=== PATIENT | male | born 1960 | race Caucasian/White ===

== ENCOUNTER 2021-07-26 19:09 | Emergency (ER) | payer SELFPAY ==
[~2021-07-26] VITALS: Ht 195.6 cm; Wt 97.7 kg
[~2021-07-26 19:09] MED LIST: HYOS0.1278 SL; OXYB5TAB10 PO; OXYC1TAB7 PO; SCOP1PAT12 TP; SENN-161 PO; SULF1TAB23 PO
--- NOTE | 2021-07-26 19:25 | PHYS DOC ---
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 " Patient is a 61 year old male who presents with above hx of heavy alcohol use. Pt. still celebrating his birthday. Patient reports she is from alcohol mine [facility]. Has been here a couple of days visiting a friend from the . Patient states he does drink alcohol every day. Preferably whiskey but no preference. Patient does not smoke. Patient reports no trauma. Patient initially identified himself as only as Shawn Sky however was later identified as Shawn Augustine. Mr. Augustine is also know ast Shawn Patriciaony. Patient has past medical history of urinary tract infections prostate cancer status post prostatectomy, alcohol abuse,. Review of Systems: Review of Systems: Constitutional: Denies fever or chills Eyes: Denies change in visual acuity HENT: Denies nasal congestion or sore throat Respiratory: Denies cough or shortness of breath Cardiovascular: Denies chest pain or edema GI: Denies abdominal pain, nausea, vomiting, bloody stools or diarrhea : Denies dysuria Musculoskeletal: Denies back pain or joint pain Integument: Denies rash Neurologic: Denies headache, focal weakness or sensory changes Endocrine: Denies polyuria or polydipsia Lymphatic: Denies swollen glands Psychiatric: Denies depression or anxiety Family History: Family History: Noncontributory to presentation Current Medications: Current Meds: See nursing for home meds Allergies: Allergies: No known allergies Physical Exam: PE: Constitutional: , no acute distress, non-toxic appearance. [] HENT: Normocephalic, atraumatic, bilateral external ears normal, oropharynx moist, no oral exudates, nose normal. [] Eyes: PERRLA, EOMI, conjunctiva normal, no discharge. [] Neck: Normal range of motion, no tenderness, supple, no stridor. [] Cardiovascular:Heart rate regular rhythm, no murmur [] Lungs & Thorax: Bilateral breath sounds equal apex on auscultation [] Abdomen: Bowel sounds normal, soft, no tenderness, no masses, no pulsatile masses. Old surgery scar Skin: Warm, dry, no erythema, no rash. [] Back: No tenderness, no CVA tenderness. [] Extremities: No tenderness, no cyanosis, no clubbing, ROM intact, no edema. Scratch on left leg Neurologic: Alert and oriented X 3, moves all extremities on request, does have distal sensory,,. Slurred speech. Slightly discoordinated. Ataxia. Psychologic: Affect normal, judgement impaired, mood normal. [] EKG: EKG: My interpretation EKG shows a sinus rhythm at 75 bpm. No acute morphology. Does have some nonspecific T waves. No findings acute STEMI or contralateral changes. Time of EKG is 1946 hrs. [] Radiology/Procedures: Radiology/Procedures: : 1960LOCATION: ERAGE: 61 SEX: M EXAM STATUS: PRE ER ORD. PHYSICIAN: ROSIE VIVAS MD REASON: AMS PROCEDURE: CT HEAD WO CONTRAST EXAMINATION: CT HEAD/BRAIN WO CLINICAL HISTORY: Altered mental status. TECHNIQUE: Serial axial images without IV contrast were obtained from the vertex to the foramen magnum. CT Dose Reduction Employed: One or more of the following individualized dose reduction techniques were utilized for this examination: 1. Automated exposure control 2. Adjustment of the mA and/or kV according to patient size 3. Use of iterative reconstruction technique. COMPARISON: None FINDINGS: Acute Change: No evidence of an acute infarct or other acute parenchymal process. Hemorrhage: No evidence of acute intracranial hemorrhage. Mass Lesion/Mass Effect: No evidence of intracranial mass or extraaxial fluid collection. No significant mass effect. Chronic Change: Encephalomalacia in the left frontoparietal and anterior inferior left frontal lobes, compatible with remote infarcts. Somewhat more masslike area of slightly heterogeneous hypoattenuation in the inferolateral right frontal lobe, possibly also related to a remote infarct but incompletely evaluated. Parenchyma: Mild generalized volume loss. Ventricles: Ventricular enlargement concordant with degree of parenchymal volume loss. Paranasal Sinuses and Skull Base: Visualized paranasal sinuses clear. Visualized skull base and soft tissues unremarkable. IMPRESSION: No definitive evidence of acute intracranial abnormality. 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 Somewhat more masslike area of nonspecific hypoattenuation in the right frontal lobe, possibly also related to remote infarct but incompletely evaluated. Consider MRI for further evaluation. Electronically signed by: Manuelito Poe DO (07/26/2021 8:39 PM) [facility] DICTATED AND SIGNED BY: MANUELITO POE DO DATE: 07/26/212033 CC: ROSIE VIVAS MD ~ [][address] [address] IMAGING REPORT Signed PATIENT: SHAWN AUGUSTINE AACCOUNT: [id number] : 1960 LOCATION: ER AGE: 61 SEX: M EXAM STATUS: REG ER ORD. PHYSICIAN: ROSIE VIVAS MD REASON: mental status change, cough PROCEDURE: PORTABLE CHEST 1V EXAMINATION: XR CHEST 1V CLINICAL HISTORY: Mental status change, cough. EXAM DATE/TIME: 07/26/2021 7:29 PM COMPARISON: None FINDINGS: Lines, Tubes, and Devices: None. Cardiomediastinal Silhouette: Normal heart size. Lungs and Pleura: No evidence of focal airspace consolidation, pleural effusion, or pneumothorax. Probable mild bibasilar subsegmental atelectasis and/or scarring. Bones and Soft Tissues: No acute osseous abnormality. IMPRESSION: No evidence of acute cardiopulmonary abnormality. Electronically signed by: Manuelito Poe DO (07/26/2021 9:00 PM) [facility] DI[facility]ATED AND SIGNED BY: MANUELITO POE DO DATE: 07/26/212058 CC: ROSIE VIVAS MD; PCP,NO ~ Heart Score: C/O Chest Pain: N/A Risk Factors: Risk Factors: DM, Current or recent (<one month) smoker, HTN, HLP, family history of CAD, obesity. Risk Scores: Score 0 - 3: 2.5% MACE over next 6 weeks - Discharge Home Score 4 - 6: 20.3% MACE over next 6 weeks - Admit for Clinical Observation Score 7 - 10: 72.7% MACE over next 6 weeks - Early Invasive Strategies Course & Med Decision Making: Course & Med Decision Making Pertinent Labs and Imaging studies reviewed. (See chart for details) Patient transferred to [facility] - for planned MRI of head to eval. for CVA and Frontal mass. Will not anticoagulate at this time for the elevated D-dimer may be related to frontal infarct vs mass- until better eval . by MRI. The alcohol level of 26 is not enough for his altered mental status.. Patient may also be postictal. Impression: 1. Mental status change 2. Hx. of earlier Alcohol intoxication ( currently ETOH only 26) 3. Drug screen positive for cocaine, methamphetamine, marijuana and alcohol 4. Elevated CK3 68 5. Renal insufficiency BUN 27 creatinine 1.5 6. Elevated D-dimer 2.79 7. Mild anemia hemoglobin 12.2 [] Dragon Disclaimer: Dragon Disclaimer: This electronic medical record was generated, in whole or in part, using a voice recognition dictation system. Dragon Disclaimer This chart was dictated in whole or in part using Voice Recognition software in a busy, high-work load, and often noisy Emergency Department environment. It may contain unintended and wholly unrecognized errors or omissions. ROSIE VIVAS MD July 26, 2021 19:25
[2021-07-26] MEDS ORDERED: IV RINGERS SOLUTION,LACTATED 1,000 ML IV SCH (19:30)
[2021-07-26 19:59] LABS: BASO % 1 % (0-3); EOS # 0.2 x10^3/uL (0.0-0.7); EOS % 3 % (0-3); HEMOGLOBIN 12.2 g/dL (13.0-17.5); LYMPH # 1.8 x10^3/uL (1.0-4.8); LYMPH % 29 % (24-48); MEAN CORPUSCULAR HEMOGLOBIN 32 pg (25-35); MEAN CORPUSCULAR HGB CONC 35 g/dL (31-37); MEAN CORPUSCULAR VOLUME 92 fL (79-100); MONO # 0.5 x10^3/uL (0.0-1.1); MONO % 8 % (0-9); NEUT # 3.7 x10^3uL (1.8-7.7); NEUT % 60 % (31-73); PLATELET COUNT 151 x10^3/uL (140-400); RED BLOOD COUNT 3.79 x10^6/uL (4.30-5.70); RED CELL DISTRIBUTION WIDTH 13.3 % (11.5-14.5); WHITE BLOOD COUNT 6.2 x10^3/uL (4.0-11.0)
[2021-07-26 20:05] LABS: BARBITURATES NEG (NEG); BENZODIAZEPINES NEG (NEG); CANNABINOIDS POS (NEG); COCAINE POS (NEG); METHADONE NEG (NEG); OPIATES NEG (NEG); PHENCYCLIDINE NEG (NEG)
[2021-07-26 20:06] LABS: CALCIUM 8.8 mg/dL (8.5-10.1); CREATININE 1.5 mg/dL (0.7-1.3); GFR 47.3
[2021-07-26 20:07] LABS: BACTERIA,URINE 0 /HPF (0-FEW); CLARITY,URINE CLEAR; COLOR,URINE YELLOW; GLUCOSE,URINE NEG (NEG); NITRITE,URINE NEG (NEG); RBC,URINE 0 /HPF (0-2); SQUAMOUS EPITHELIAL CELL,UR OCC /LPF; UROBILINOGEN,URINE 0.2 mg/dL (0.2 mg/dL); WBC,URINE 0 /HPF (0-4)
[2021-07-26 20:08] LABS: AMORPHOUS SEDIMENT,UR PRESENT /HPF
[2021-07-26 20:09] LABS: AMPHETAMINE/METHAMPHETAMINE POS (NEG)
[2021-07-26 20:19] LABS: ALBUMIN 3.6 g/dL (3.4-5.0); DIRECT BILIRUBIN 0.1 mg/dL (0.0-0.2); MAGNESIUM 1.8 mg/dL (1.8-2.4); TOTAL BILIRUBIN 0.4 mg/dL (0.2-1.0); TOTAL PROTEIN 6.7 g/dL (6.4-8.2)
[2021-07-26 20:37] LABS: INFLUENZA A PATIENT NEGATIVE (NEGATIVE); INFLUENZA B PATIENT NEGATIVE (NEGATIVE)
--- NOTE | 2021-07-26 20:41 | RAD ---
EXAMINATION: CT HEAD/BRAIN WO CLINICAL HISTORY: Altered mental status. TECHNIQUE: Serial axial images without IV contrast were obtained from the vertex to the foramen magnu m. CT Dose Reduction Employed: One or more of the following individualized dose reduction techniques rubio e utilized for this examination: 1. Automated exposure control 2. Adjustment of the mA and/or kV ac cording to patient size 3. Use of iterative reconstruction technique. COMPARISON: None FINDINGS: Acute Change: No evidence of an acute infarct or other acute parenchymal process. Hemorrhage: No evidence of acute intracranial hemorrhage. Mass Lesion/Mass Effect: No evidence of intracranial mass or extraaxial fluid collection. No signific ant mass effect. Chronic Change: Encephalomalacia in the left frontoparietal and anterior inferior left frontal lobes, compatible with remote infarcts. Somewhat more masslike area of slightly heterogeneous hypoattenuati on in the inferolateral right frontal lobe, possibly also related to a remote infarct but incompletel y evaluated. Parenchyma: Mild generalized volume loss. Ventricles: Ventricular enlargement concordant with degree of parenchymal volume loss. Paranasal Sinuses and Skull Base: Visualized paranasal sinuses clear. Visualized skull base and soft tissues unremarkable. IMPRESSION: No definitive evidence of acute intracranial abnormality. 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 Somewhat more masslike area of nonspecific hypoattenuation in the right frontal lobe, possibly also r elated to remote infarct but incompletely evaluated. Consider MRI for further evaluation. Electronically signed by: Manuelito Rahman DO (07/26/2021 8:39 PM) [facility]
--- NOTE | 2021-07-26 21:02 | RAD ---
EXAMINATION: XR CHEST 1V CLINICAL HISTORY: Mental status change, cough. EXAM DATE/TIME: 07/26/2021 7:29 PM COMPARISON: None FINDINGS: Lines, Tubes, and Devices: None. Cardiomediastinal Silhouette: Normal heart size. Lungs and Pleura: No evidence of focal airspace consolidation, pleural effusion, or pneumothorax. Pro bable mild bibasilar subsegmental atelectasis and/or scarring. Bones and Soft Tissues: No acute osseous abnormality. IMPRESSION: No evidence of acute cardiopulmonary abnormality. Electronically signed by: Manuelito Rahman DO (07/26/2021 9:00 PM) [facility]
[2021-07-26 23:05] VITALS: BP 132/71
== END 2021-07-26 23:32 | disposition short-term general hospital (02) ==
LOC: ER 19:09 → MERGE 19:09 → ER 23:32
DX: R41.82 Altered mental status, unspecified (principal); R79.89 Other specified abnormal findings of blood chemistry; N28.9 Disorder of kidney and ureter, unspecified; R79.1 Abnormal coagulation profile; D64.9 Anemia, unspecified; F10.10 Alcohol abuse, uncomplicated; F15.90 Other stimulant use, unspecified, uncomplicated; F14.90 Cocaine use, unspecified, uncomplicated; F12.90 Cannabis use, unspecified, uncomplicated; Z20.822 Contact with and (suspected) exposure to COVID-19; Z87.440 Personal history of urinary (tract) infections; Y90.1 Blood alcohol level of 20-39 mg/100 ml
CPT/HCPCS: 36415; 70450; 71045; 80048; 80076; 80307; 81001; 82550; 83690; 83735; 83880; 84443; 84484; 85025; 85379; 85610; 85730; 87428; 93005; 96360; 99285; G0480; J7120